=== PATIENT | male | born 1975 | race Caucasian/White ===

== ENCOUNTER 2017-04-09 00:50 | Observation (INO) | payer MEDICAID ==
--- NOTE | 2017-04-09 01:04 | CPEKG ---
Heart Rate: 120 RR Interval: 500 P-R Interval: 144 QRSD Interval: 106 QT Interval: 328 QTC Interval: 464 P Devens: 38 QRS Devens: 44 T Wave Devens: 37 EKG Severity - ABNORMAL ECG - EKG Impression: SINUS TACHYCARDIA EKG Impression: PROBABLE LEFT ATRIAL ABNORMALITY EKG Impression: INCOMPLETE RIGHT BUNDLE BRANCH BLOCK Electronically Signed By: Murray Barnes 09-Apr-2017 06:16:54
--- NOTE | 2017-04-09 01:07 | EDPHY ---
H & P Stated Complaint: CP HPI/ROS: Chief Complaint: Chest pain HPI: 41-year-old male developed chest pain about an hour ago while he was running on a treadmill. Pain is an 8/10. Feels like a sharp stabbing pain in the center of his chest. It is not radiating. He has never had similar pain before. Has some mild associated shortness of breath. No nausea or vomiting. There are no aggravating or alleviating factors. He does smoke several cigarettes a day. Has a family history of coronary disease in his father. Does not know at what age because they are somewhat estranged. No recent illness. No fevers or chills. No cough. No nausea or vomiting. ROS: 10 point Review of Systems is negative except as noted in the HPI. PMH: Open heart surgery as a child Social History: Positive smoking, rare alcohol, no recreational drug use Family History: Father has a history of coronary artery disease Physical Exam: Gen: Awake, Alert, No Distress HEENT: Nose: no rhinorrhea Eyes: PERRLA, EOMI Mouth: Moist mucosa Neck: Supple, no JVD Chest: nontender, lungs clear to auscultation Heart: S1, S2 normal, no murmur Abd: Soft, non-tender, no guarding Back: no CVA tenderness, no midline tenderness Ext: no edema, non-tender Skin: no rash Neuro: CN II-XII intact, Sensation grossly intact, Strength 5/5 in bilateral upper and lower extremities - Personal History Current Tetanus/Diphtheria Vaccine: Unsure Current Tetanus Diphtheria and Acellular Pertussis (TDAP): Unsure - Medical/Surgical History Hx Asthma: No Hx Chronic Respiratory Disease: No Hx Cardiac Disease: Yes Hx Renal Disease: No Hx Cirrhosis: No Hx Alcoholism: No Hx HIV/AIDS: No Hx Splenectomy or Spleen Trauma: No Other PMH: Open heart sx. - Social History Smoking Status: Light smoker Constitutional: Initial Vital Signs Temperature (C) 36.8 C 04/09/17 00:52 Heart Rate 121 H 04/09/17 00:52 Respiratory Rate 15 04/09/17 00:52 Blood Pressure 122/81 H 04/09/17 00:52 O2 Sat (%) 93 04/09/17 00:52 O2 Delivery Mode Room Air Allergies/Adverse Reactions: No Known Allergies Allergy (Unverified 04/09/17 00:57) Home Medications: Medication Instructions Recorded NK [No Known Home Meds] 04/09/17 Medical Decision Making - Diagnostics EKG Interpretation: ECG time 1:02 a.m., sinus tachycardia with a rate of 120, normal axis, there is an incomplete right bundle branch block. No acute ST or T-wave changes. Imaging Results: Chest x-ray is negative per my interpretation. Imaging: I viewed and interpreted images myself ED Course/Re-evaluation: Patient has a incomplete right bundle branch block and probable left atrial abnormality as ECG. This could be secondary to his surgery as a child. His troponin is negative. Chest x-ray is unremarkable. D-dimer is normal. He did not have any relief with nitroglycerin or with a GI cocktail. Pain is down to a 4/10 after 4 mg morphine. I have discussed with Dr. Quinones, hospitalist. He will admit to telemetry for further evaluation. - Data Points Laboratory Results: Laboratory Results 04/09/17 01:12 04/09/17 01:12 04/09/17 04/09/17 04/09/17 01:12 01:12 01:12 WBC 5.10 10^3/uL 10^3/uL (3.80-9.50) RBC 5.46 10^6/uL 10^6/uL (4.40-6.38) Hgb 17.5 g/dL g/dL (13.7-17.5) Hct 48.2 % % (40.0-51.0) MCV 88.3 fL fL (81.5-99.8) MCH 32.1 pg pg (27.9-34.1) MCHC 36.3 g/dL g/dL (32.4-36.7) RDW 12.3 % % (11.5-15.2) Plt Count 209 10^3/uL 10^3/uL (150-400) MPV 9.1 fL fL (8.7-11.7) Neut % (Auto) 42.9 % % (39.3-74.2) Lymph % (Auto) 41.6 % % (15.0-45.0) [place] % (Auto) 10.2 % % (4.5-13.0) Eos % (Auto) 3.9 % % (0.6-7.6) Baso % (Auto) 1.0 % % (0.3-1.7) Nucleat RBC Rel Count 0.0 % % (0.0-0.2) Absolute Neuts (auto) 2.19 10^3/uL 10^3/uL (1.70-6.50) Absolute Lymphs (auto) 2.12 10^3/uL 10^3/uL (1.00-3.00) Absolute Monos (auto) 0.52 10^3/uL 10^3/uL (0.30-0.80) Absolute Eos (auto) 0.20 10^3/uL 10^3/uL (0.03-0.40) Absolute Basos (auto) 0.05 10^3/uL 10^3/uL (0.02-0.10) Absolute Nucleated RBC 0.00 10^3/uL 10^3/uL (0-0.01) Immature Gran % 0.4 % % (0.0-1.1) Immature Gran # 0.02 10^3/uL 10^3/uL (0.00-0.10) D-Dimer 0.31 ug/mLFEU ug/mLFEU (0.00-0.50) Sodium 146 mEq/L H mEq/L (135-145) Potassium 4.2 mEq/L mEq/L (3.5-5.2) Chloride 106 mEq/L mEq/L (97-110) Carbon Dioxide 22 mEq/l mEq/l (22-31) Anion Gap 18 mEq/L H mEq/L (8-16) BUN 19 mg/dL mg/dL (7-23) Creatinine 0.9 mg/dL mg/dL (0.7-1.3) Estimated GFR > 60 Glucose 99 mg/dL mg/dL (70-100) Calcium 10.1 mg/dL mg/dL (8.5-10.4) Troponin I < 0.012 ng/mL ng/mL (0.000-0.034) Medications Given: Discontinued Medications Al Hydroxide/Mg Hydroxide (Maalox Susp) 30 ml PO ONCE ONE Stop: 04/09/17 01:10 Last Admin: 04/09/17 01:30 Dose: 30 ml Aspirin (Aspirin) 324 mg PO EDNOW ONE Stop: 04/09/17 01:10 Last Admin: 04/09/17 01:21 Dose: 324 mg Sodium Chloride (Ns) 1,000 mls @ 0 mls/hr IV ONCE ONE; Wide Open PRN Reason: Protocol Stop: 04/09/17 01:27 Last Admin: 04/09/17 01:27 Dose: 1,000 mls Lidocaine (Lidocaine 2% Viscous) 15 ml PO ONCE ONE Stop: 04/09/17 01:10 Last Admin: 04/09/17 01:30 Dose: 15 ml Morphine Sulfate (Morphine) 4 mg IVP ONCE ONE Stop: 04/09/17 01:46 Last Admin: 04/09/17 01:47 Dose: 4 mg Nitroglycerin (Nitrostat) 0.4 mg SL EDNOW ONE Stop: 04/09/17 01:10 Last Admin: 04/09/17 01:21 Dose: 0.4 mg Departure - Departure Disposition: [facility] Inpatient Acute Clinical Impression: Chest pain Condition: Fair Referrals: NONE *PRIMARY CARE P,. [Primary Care Provider] - As per Instructions
[2017-04-09] MEDS ORDERED: MAG HYDROX/AL HYDROX/SIMETH 30 ML UDCUP PO ONE (01:09)
[2017-04-09] MEDS ORDERED: ASPIRIN 81 MG CHEWABLE TAB PO ONE (01:09)
[2017-04-09] MEDS ORDERED: LIDOCAINE 2% VISCOUS 15 ML UDCUP PO ONE (01:09)
[2017-04-09] MEDS ORDERED: NITROGLYCERIN 0.4 MG BTL SL ONE (01:09)
[2017-04-09 01:18] LABS: PLATELET COUNT 209 10^3/uL (150-400)
[2017-04-09] MEDS ORDERED: NS 1,000 ML IV ONE (01:26)
[2017-04-09] MEDS ORDERED: ACETAMINOPHEN 325 MG TAB PO PRN (02:20)
[2017-04-09] MEDS ORDERED: ONDANSETRON DISINTEGRATING 4 MG TAB PO PRN (02:20)
[2017-04-09] MEDS ORDERED: ONDANSETRON 4 MG/2 ML VIAL IVP PRN (02:20)
--- NOTE | 2017-04-09 02:45 | PDGENHP ---
History and Physical - Chief Complaint Chest pain - History of Present Illness 41 yo M w/ hx of prior cardiac surgery presents with chest pain. Patient was running on a treadmill around midnight and noticed sudden onset, central, stabbing chest pain. He rated this as severe upon arrival. He is very physically active and has never noticed similar pain. In the ED he had no relief with NTG and moderate relief with morphine. He has an incomplete RBBB on ECG and currently in sinus tach w/ rate 100-110. He reports having a heart surgery as a child but does not recall for what. He thinks it may have been to correct a murmur. History Information - Allergies/Home Medication List Allergies/Adverse Reactions: No Known Allergies Allergy (Unverified 04/09/17 00:57) Home Medications: NK [No Known Home Meds] 04/09/17 [Last Taken Unknown] I have personally reviewed and updated: family history, medical history - Past Medical History no pertinent PMH - Surgical History Additional surgical history: Unspecidifed cardiac surgery - Family History Positive for: CAD - Social History Smoking Status: Light smoker Review of Systems Review of Systems: ROS: 10pt was reviewed & negative except for what was stated in HPI & below Physical Exam Physical Exam: Temp Pulse Resp BP Pulse Ox 36.8 C 104 H 14 107/51 L 92 04/09/17 00:52 04/09/17 02:07 04/09/17 02:07 04/09/17 02:07 04/09/17 02:07 Constitutional: appears nourished, uncomfortable Eyes: PERRL, EOMI Ears, Nose, Mouth, Throat: moist mucous membranes, no oral mucosal ulcers Cardiovascular: no murmur, rub, or gallop, tachycardia Respiratory: no respiratory distress, clear to auscultation Gastrointestinal: normoactive bowel sounds, soft, non-tender abdomen Skin: warm, normal color Neurologic: AAOx3, CN II-XII Intact Psychiatric: interacting appropriately, not anxious Lab Data & Imaging Review 04/09/17 01:12 04/09/17 01:12 WBC 5.10 10^3/uL (3.80-9.50) 04/09/17 01:12 RBC 5.46 10^6/uL (4.40-6.38) 04/09/17 01:12 Hgb 17.5 g/dL (13.7-17.5) 04/09/17 01:12 Hct 48.2 % (40.0-51.0) 04/09/17 01:12 MCV 88.3 fL (81.5-99.8) 04/09/17 01:12 MCH 32.1 pg (27.9-34.1) 04/09/17 01:12 MCHC 36.3 g/dL (32.4-36.7) 04/09/17 01:12 RDW 12.3 % (11.5-15.2) 04/09/17 01:12 Plt Count 209 10^3/uL (150-400) 04/09/17 01:12 MPV 9.1 fL (8.7-11.7) 04/09/17 01:12 Neut % (Auto) 42.9 % (39.3-74.2) 04/09/17 01:12 Lymph % (Auto) 41.6 % (15.0-45.0) 04/09/17 01:12 [place] % (Auto) 10.2 % (4.5-13.0) 04/09/17 01:12 Eos % (Auto) 3.9 % (0.6-7.6) 04/09/17 01:12 Baso % (Auto) 1.0 % (0.3-1.7) 04/09/17 01:12 Nucleat RBC Rel Count 0.0 % (0.0-0.2) 04/09/17 01:12 Absolute Neuts (auto) 2.19 10^3/uL (1.70-6.50) 04/09/17 01:12 Absolute Lymphs (auto) 2.12 10^3/uL (1.00-3.00) 04/09/17 01:12 Absolute Monos (auto) 0.52 10^3/uL (0.30-0.80) 04/09/17 01:12 Absolute Eos (auto) 0.20 10^3/uL (0.03-0.40) 04/09/17 01:12 Absolute Basos (auto) 0.05 10^3/uL (0.02-0.10) 04/09/17 01:12 Absolute Nucleated RBC 0.00 10^3/uL (0-0.01) 04/09/17 01:12 Immature Gran % 0.4 % (0.0-1.1) 04/09/17 01:12 Immature Gran # 0.02 10^3/uL (0.00-0.10) 04/09/17 01:12 D-Dimer 0.31 ug/mLFEU (0.00-0.50) 04/09/17 01:12 Sodium 146 mEq/L (135-145) H 04/09/17 01:12 Potassium 4.2 mEq/L (3.5-5.2) 04/09/17 01:12 Chloride 106 mEq/L (97-110) 04/09/17 01:12 Carbon Dioxide 22 mEq/l (22-31) 04/09/17 01:12 Anion Gap 18 mEq/L (8-16) H 04/09/17 01:12 BUN 19 mg/dL (7-23) 04/09/17 01:12 Creatinine 0.9 mg/dL (0.7-1.3) 04/09/17 01:12 Estimated GFR > 60 04/09/17 01:12 Glucose 99 mg/dL (70-100) 04/09/17 01:12 Calcium 10.1 mg/dL (8.5-10.4) 04/09/17 01:12 Troponin I < 0.012 ng/mL (0.000-0.034) 04/09/17 01:12 Visualized and Interpreted Chest x-ray results: Yes Chest X-Ray results: no infiltrate Visualized and Interpreted EKG results: Yes EKG Interpretation: Positive for: other (Sinus tach, incomplete RBBB) Assessment & Plan Assessment: 41 yo M w/ hx of prior cardiac surgery presents with chest pain. Plan: 1. Chest pain - Started suddenly while running on the treadmill and has been unrelenting since. Initial troponin negative and ECG without ischemia although does have incomplete RBBB, which may be old noting hx of prior cardiac surgery. D-dimer negative. - Admit to PCU for observation - Monitor on telemetry, trend cardiac enzymes - Will order TTE for further evaluation 2. Hx of prior cardiac surgery - Patient does not recall what this was for, maybe to correct a murmur. Sternotomy wires visible on CXR. He takes no medications at baseline and is usually physically active. Diet - NPO Code - Full Ppx - LMWH Dispo - Admit to observation status
[2017-04-09 06:31] LABS: PLATELET COUNT 179 10^3/uL (150-400)
[2017-04-09] MEDS ORDERED: ENOXAPARIN 40 MG/0.4 ML SYR SC SCH (09:00)
[2017-04-09 11:33] VITALS: BP 125/79; PULSE 106; RESP 15; TEMP 97.9; O2SAT 90
[2017-04-09] MEDS ORDERED: KETOROLAC 30 MG/1 ML SDV IVP PRN (13:21)
--- NOTE | 2017-04-09 13:44 | ECHO ---
[email or web address] [address] [address] Main: [phone] Fax: Transthoracic Echocardiogram Name: ЕКАТЕРИНА BAEZ MR#: [id number] Study Date: 04/09/2017 Study Time: 10:12 AM Date of : 1975 Age: 41 year(s) Height: 180.3 cm (71 in.) Weight: 72.58 kg (160 lb.) BSA: 1.92 m2 Gender: Male Examination: Echo with Agitated Saline Indication: Chest Pain, hx of congenital heart surgery type unknown Image Quality: Adequate Contrast: I.V. 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 Normal left and right ventricular systolic function with normal chamber dimensions. Query atrial septal defect repair. No significant valvular abnormalities by Doppler 2 dimensional study. Measurements: Chambers Valvular Assessment AV/MV Valvular Assessment TV/PV Normal Normal Normal Name Value Range Name Value Range Name Value Range Ao Salima (MM): 2.9 cm (2.2 cm-3.7 AV Vmax: 1.24 m/s (1 m/s-1.7 PV Vmax: 1.13 m/s (0.6 m/s-0.9 cm) m/s) m/s) IVSd (2D): 0.9 cm (0.6 cm-1.1 AV maxP mmHg ( - ) PV PGmax: 5 mmHg ( - ) cm) LVOT Vmax: 0.88 m/s (0.7 m/s-1.1 LVDd (2D): 4.4 cm (4.2 cm-5.9 m/s) cm) MV E Vmax: 0.83 m/s ( - ) LVDs (2D): 3.2 cm (2.1 cm-4 MV A Vmax: 0.58 m/s ( - ) cm) MV E/A: 1.43 ( - ) LVPWd (2D): 1.2 cm (0.6 cm-1 cm) LVEF (BP): 61 % (>=55 %) RVDd(2D): 3.8 cm (1.9 cm-3.8 cmmm) Continued Measurements: Chambers Valvular Assessment AV/MV Name Value Name Value LADs: 3.5 cm MV DecTime: 109 m/s LADs Lon.6 cm MV E/E' Septal: 9.00 LA Area: 14.8 cm2 MV E/E' Lateral: 7.30 Patient: ЕКАТЕРИНА BAEZ Study Date: 04/09/2017 Page 1 of 2 10:12 AM LA Volume: 31 ml LA Volume Index: 16.1 ml/m2 TAPSE: 1.5 cm RA Area: 14.8 cm2 Additional Vessels Name Value Ao Ascendin.4 cm Findings: Left Ventricle: Normal size left ventricle. No LV hypertrophy. Normal global systolic LV function. EF is 61 %. No regional wall motion abnormality. Normal diastolic LV function. Right Ventricle: Normal size right ventricle. Normal RV function. Left Atrium: The left atrium is normal in size. An agitated saline study was performed and was negative for intracardiac shunting. Probable ASD repair; IAS looks thickened.. Right Atrium: The right atrium is normal in size. Mitral Valve: The mitral valve is normal in appearance and function. There is no mitral valve regurgitation. No mitral stenosis is present. Aortic Valve: The aortic valve is tri-leaflet and functions normally. There is no aortic valve regurgitation. No aortic valve stenosis is present. Tricuspid Valve: The tricuspid valve is normal in appearance and function. Trivial to mild tricuspid valve regurgitation. Pulmonary artery pressure is not obtained due to inadequate TR jet. Pulmonic Valve: The pulmonic valve is normal in appearance and function. There is no pulmonic regurgitation seen. Aorta: The aorta is normal. Normal size aortic root measuring 2.9 cm. Normal size ascending aorta measuring 2.4 cm. IVC: The IVC is normal sized. Pericardium: Trivial pericardial effusion. (No Signature Object) Patient: ЕКАТЕРИНА BAEZ Study Date: 04/09/2017 Page 2 of 2 10:12 AM [id number]
--- NOTE | 2017-04-09 13:57 | PDDCSUM ---
Discharge Summary Discharge Summary: 41 yo M w/ hx of prior cardiac surgery admitted with surgery. Trops negative. During my rounds he was still having chest pain and a decision to proceed with stress test was made. TTE had been done and the official read was pending. Unfortunately, the pt left against medical advice for unknown reasons. DDX: 1. Chest pain - Started suddenly while running on the treadmill and has been unrelenting since. Initial troponin negative and ECG without ischemia although does have incomplete RBBB, which may be old noting hx of prior cardiac surgery. D-dimer negative. 2. Hx of prior cardiac surgery? Exam: VSS NAD AAOX3 RRR CTA B S/NT/ND NO LE EDEMA TOTAL TIME SPENT ON D/C INCLUDING ROUNDING WITH MEDICAL STAFF AT BEDSIDE IS 35 MINS
== END 2017-04-09 13:34 | disposition left against medical advice (07) ==
LOC: F2W 04:00
PROVIDERS: ADMIT Student in an Organized Health Care Education/Training Program; ATTEND Family Medicine
DX: R07.9 Chest pain, unspecified (principal); I45.10 Unspecified right bundle-branch block; F17.210 Nicotine dependence, cigarettes, uncomplicated; Z82.49 Family history of ischemic heart disease and other diseases of the circulatory system
CPT/HCPCS: 71046; 93005; 93306; G0378; 96374; J1650; J2270

== ENCOUNTER 2017-04-20 16:38 | Emergency (ER) | payer MEDICAID ==
[2017-04-20 17:11] VITALS: RESP 16
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
[2017-04-20 18:05] LABS: PLATELET COUNT 206 10^3/uL (150-400)
[2017-04-21] MEDS ORDERED: GABAPENTIN 100 MG CAP PO ONE (07:45)
[2017-04-21] MEDS ORDERED: LORazepam 1 MG TAB PO ONE (07:46)
[2017-04-21] MEDS ORDERED: ALPRAZolam 0.25 MG TAB PO ONE (15:11)
[2017-04-21] MEDS ORDERED: OLANZapine 5 MG TAB PO ONE (16:36)
[2017-04-22 08:48] VITALS: O2SAT 98
[2017-04-22 12:53] VITALS: BP 159/96; PULSE 98; TEMP 96.8
== END 2017-04-22 12:51 | disposition home or self-care (01) ==
PROC: GZ11ZZZ Psychological Tests, Personality and Behavioral (ICD-10-PCS; principal; 2017-04-20)
DX: F20.9 Schizophrenia, unspecified (principal); F17.200 Nicotine dependence, unspecified, uncomplicated
CPT/HCPCS: 80305; G0480